=== PATIENT | male | born 1970 | race Two or more races ===

== ENCOUNTER → 2024-09-16 | Outpatient (CLI) | payer MEDICAID, SELFPAY ==
--- NOTE | 2024-09-16 13:30 | XR_ITS ---
Examination: Cervical myelogram IR fluoroscopically guided lumbar puncture Fluoroscopy AP lumbar thoracic cervical spine 7 views Exam date and time: September 16, 2024 at 1400 hours INDICATIONS: Neck pain months, diagnosis cervical spinal stenosis, advanced bilateral neural foraminal stenosis MRI cervical spine July 20, 2024 TECHNIQUE AND FINDINGS: Informed consent provided. Skin prepped over the lower back and sterile drape applied hand hygiene Successful lumbar puncture L5-S1 with introduction 10 cc Isovue-M 300 Contrast position in the cervical spine with AP images obtained lumbar thoracic and cervical spine No lateral indentations upon the cervical spine Please see the CT cervical spine study to follow IMPRESSION: Successful cervical myelogram Please see the CT cervical myelogram study to follow
[2024-09-16 13:47] VITALS: BP 164/108; PULSE 92; RESP 17; O2SAT 96; BMI 15.9
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
== END | disposition home or self-care (01) ==
PROVIDERS: PCP Student in an Organized Health Care Education/Training Program; Referring Provider Neurological Surgery; Visit Provider Neurological Surgery
DX: M48.02 Spinal stenosis, cervical region (principal); M50.123 Cervical disc disorder at C6-C7 level with radiculopathy; M50.322 Other cervical disc degeneration at C5-C6 level; M25.78 Osteophyte, vertebrae
CPT/HCPCS: 62302; 72125; Q9967

== ENCOUNTER → 2024-10-26 | Outpatient (CLI) | payer MEDICAID, SELFPAY ==
--- NOTE | 2024-10-26 | XR_ITS ---
Examination: PA lateral chest 2 views TECHNIQUE: Upright PA lateral chest 2 views Exam date and time: October 26, 2024 1325 hours Comparison April 22, 2024 INDICATIONS: Shortness of breath 2 weeks, undergoing antibiotic therapy FINDINGS: Stable pleural parenchymal scarring right base Mild prominence left ventricle No interval pneumonia or pulmonary edema Moderate osteopenia IMPRESSION: No interval pneumonia or pulmonary edema
== END | disposition home or self-care (01) ==
LOC: CDIM 12:05
PROVIDERS: Referring Provider Student in an Organized Health Care Education/Training Program; Visit Provider Student in an Organized Health Care Education/Training Program
DX: R06.02 Shortness of breath (principal); R07.9 Chest pain, unspecified
CPT/HCPCS: 71046

== ENCOUNTER → 2025-02-28 | Outpatient (CLI) | payer MEDICAID, SELFPAY ==
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
== END | disposition home or self-care (01) ==
LOC: CDIM 07:41
PROVIDERS: PCP Student in an Organized Health Care Education/Training Program; Referring Provider Internal Medicine; Visit Provider Internal Medicine
DX: R91.8 Other nonspecific abnormal finding of lung field (principal); R05.3 Chronic cough
CPT/HCPCS: 71046

== ENCOUNTER 2025-04-22 13:24 | Emergency (ER) | payer MEDICAID, SELFPAY ==
[2025-04-22 13:31] VITALS: BP 125/85; PULSE 93; RESP 20; TEMP 36.8; O2SAT 96; BMI 30.7
--- NOTE | 2025-04-22 13:32 | PD.EDRME ---
Rapid Medical Screening Exam RME Arrival date/time: 04/22/25 13:24 54-year-old male with no known medical history presents to the emergency room with a chief complaint of difficulty swallowing and throat swelling x 2 days I have greeted and performed a focused initial assessment of this patient. A comprehensive ED assessment and evaluation of the patient, analysis of all test results, and completion of the medical decision making process will be conducted by additional ED providers. Chief Complaint: Dental/Oral/Throat Time Seen by Provider: 04/22/25 13:25 Vital signs reviewed by provider: Yes
--- NOTE | 2025-04-22 13:46 | PD.EDALLER ---
ED Allergic Reaction RME/HPI General Chief complaint: Dental/Oral/Throat Stated complaint: Allergy shot yesterday, throat pain Time Seen by Provider: 04/22/25 13:25 Arrival date/time: 04/22/25 13:24 RME / HPI RME / HPI narrative: 54-year-old male patient with significant history of multiple long list of allergy to almost everything according to the , came in for evaluation regarding feeling itchy throat, and throat feels like closing, sudden onset, after patient was doing yard work. Patient is currently receiving immuno therapy for allergy, usually twice a week, last dose was yesterday. Patient denies any shortness of breath. Denies any fever denies any chest pain denies any abdominal pain no medication was taken prior to arrival. Related Data Home Medications ?Medication ?Instructions ?Recorded ?Confirmed alprazolam 0.5 mg tablet mg 04/22/25 amlodipine 10 mg-benazepril 40 mg 1 cap PO QDAY 04/22/25 04/22/25 capsule (Lotrel) bupropion HCl 150 mg tablet,12 hr 150 mg PO BID 04/22/25 04/22/25 sustained-release (Wellbutrin SR) clonidine HCl 0.1 mg tablet mg 04/22/25 hydrocodone 7.5 mg-acetaminophen 1 tab PO QDAY 04/22/25 04/22/25 325 mg tablet montelukast 10 mg tablet 10 mg PO QDAY 04/22/25 04/22/25 Previous Rx's ?Medication ?Instructions ?Recorded albuterol sulfate 2.5 mg/3 mL 2.5 mg (3 mL) inhalation QID PRN 10/16/23 (0.083 %) solution for nebulization shortness of breath or wheezing #90 mL amlodipine 10 mg tablet 10 mg PO QDAY #30 tabs 04/22/25 amoxicillin 875 mg-potassium 1 tab PO BID #14 tabs 04/22/25 clavulanate 125 mg tablet epinephrine 0.3 mg/0.3 mL 0.3 ml subcut .once PRN 04/22/25 injection, auto-injector hypersensitivity reaction #2 ea Allergies Allergy/AdvReac Type Severity Reaction Status Date / Time No Known Allergies Allergy Verified 04/22/25 13:27 Review of Systems Review of Systems Narrative Review of Systems: Review of system reviewed and within normal limits except mentioned in HPI ED Exam Narrative Physical exam: VITAL SIGNS: Reviewed. GENERAL APPEARANCE: Alert and interactive, follows commands, no acute distress, HEAD AND FACE: Non-traumatic. ENT: PERRL, pink conjunctivitis, eyelid no trauma, Mucous membrane moist. Uvula enlarged, on the midline, peritonsillar area no swelling no redness, tonsils no swelling no exudates visible no rashes noted of the oral mucosa, no lymphadenopathy or masses palpated on the cervical area NECK: Supple, nontender, no nuchal rigidity. CHEST: No tenderness, no crepitus, no paradoxical movement, no retractions. LUNGS: Clear, well ventilated, symmetric, no rales, no wheezing, no ronchi, no stridor, good breath sounds bilaterally. HEART: Regular rate, regular rhythm, no murmur, no gallops. ABDOMEN: Soft, positive bowel sounds, nondistended, no guarding, nontender, no rebound, no masses, RECTAL: Deferred. GENITAL: Deferred. NEUROLOGICAL: Gross motor function intact sensory function intact, Appropriate for age. MUSCULOSKELETAL: low back nontender, full range of motion. EXTREMITIES: Nontender, full range of motion. SKIN: Color pink, dry, + erythematous rashes noted on the back of the knees bilateral, no lacerations, no abrasions, no contusions. LYMPHATICS: Deferred. Course Quality Measures none Orders Category Date Time Status CT Screening NOW Care 04/22/25 15:[address] soft tissue neck w con Stat Exams 04/22/25 15:55 Completed CBC [CBC] Stat Lab 04/22/25 15:30 Completed CMP [Comprehensive Metabolic Panel] Stat Lab 04/22/25 15:30 Completed Strep A Rapid Stat Lab 04/22/25 13:35 Completed Amoxicillin/Pot Clav 875 [Augmentin 875] Med 04/22/25 18:37 Discontinued 1 tab PO X1 ONE Dexamethasone Inj [Decadron Inj] Med 04/22/25 14:00 Discontinued 10 mg IV X1 ONE DiphenhydrAMINE INJ [Benadryl Inj] Med 04/22/25 13:43 Discontinued 50 mg IVP X1 ONE DiphenhydrAMINE [Benadryl] Med 04/22/25 13:32 Discontinued 25 mg PO X1 ONE EPINEPHrine Inj [Adrenalin Inj] Med 04/22/25 14:31 Discontinued 0.5 mg IM X1 ONE EPINEPHrine Rt Micheline [Racemic Epi Rt Micheline] Med 04/22/25 16:39 Discontinued 0.5 ml INH X1 ONE Famotidine Inj [Pepcid Inj] Med 04/22/25 13:43 Discontinued 20 mg IVP X1 ONE Famotidine [Pepcid] Med 04/22/25 13:32 Discontinued 20 mg PO X1 ONE Sodium Chloride 0.9% 1000 ml [Ns] 1,000 ml Med 04/22/25 13:43 Discontinued IV 999 mls/hr Sodium Chloride Rt Micheline 0.9% [NS Rt Micheline 0.9%] Med 04/22/25 16:39 Active 3 ml INH PRN PRN dexAMETHasone TAB [Decadron Tab] Med 04/22/25 13:32 Discontinued 10 mg PO X1 ONE Vital Signs Vital signs: Vital Signs Temperature 98.3 F 04/22/25 13:31 Pulse Rate 93 04/22/25 13:31 Respiratory Rate 20 04/22/25 13:31 Blood Pressure 125/85 H 04/22/25 13:31 Pulse Oximetry (%) 96 04/22/25 13:31 Oxygen Delivery Method Room Air 04/22/25 13:31 Allergic Reaction MDM Narrative MDM Narrative:: 54-year-old male patient with significant history of multiple long list of allergy to almost everything according to the , came in for evaluation regarding feeling itchy throat, and throat feels like closing, sudden onset, after patient was doing yard work. Patient is currently receiving immuno therapy for allergy, usually twice a week, last dose was yesterday. Patient denies any shortness of breath. Denies any fever denies any chest pain denies any abdominal pain no medication was taken prior to arrival. Patient is a negative for strep, patient's laboratory workup is significant for slight leukocytosis 12.7 CMP unremarkable except for slightly elevated creatinine 1.8 BUN is normal. Patient was advised to drink a lot of fluids. And follow-up closely with PCP to repeat renal panel. Patient agrees with the plan. CT scan of the neck soft tissue showed Advanced degenerative disc disease C5-C6, C6-C7 Mild soft tissue tonsillar hypertrophy, no tonsillar abscess The larynx appears normal. Epiglottis is not thickened Minimal prevertebral soft tissue prominence C5, C6 levels Consider standard elective esophagram follow-up Suspicious for pneumonia right upper lobe, recommend PA lateral chest follow-up Patient was given IV fluids, Decadron, Benadryl Epi 0.5 mg IM and racemic epinephrine nebulization, with significant provide of symptoms patient is witnessed by me able to swallow water without any difficulty. Patient told me that his symptoms is totally gone. Patient was sent home on antibiotics due to pneumonia on CT scan. He told me that he had mild cough but no fever or chest pain. Patient was advised to stop taking benazepril. I gave this patient a prescription for Norvasc. Told him to follow-up closely with the PCP in the morning. Stable discharge home Patient data External records reviewed:: None Clinical information provided by:: patient and family Social determinants that could affect healthcare access:: none Patient has the following chronic illnesses:: Hypertension history of multiple allergies in the past How is presenting disease/condition affected by chronic disease/condition?: exacerbated by Evaluation data The following diagnostics were reviewed and interpreted by me:: lab results and radiology exam(s) Lab and/or radiology exams considered but not ordered:: None Interpretation Summary: See results MDM Medications / Prescriptions Medications or Prescriptions considered but not ordered:: None Medication administrations:: Medication Administration History Sodium Chloride (Sodium Chloride Rt Micheline 0.9% 3 Ml Nebu) 3 ml INH PRN PRN PRN Reason: SOLN Stop: 05/22/25 16:38 Last Admin: 04/22/25 16:46 Dose: 3 ml Documented By: PELON Discontinued Medications Amoxicillin/Clavulanate Potassium (Amoxicillin/Pot Clav 875 Tablet) 1 tab PO X1 ONE Stop: 04/22/25 18:38 Dexamethasone (Dexamethasone 4 Mg Tablet) 10 mg PO X1 ONE Stop: 04/22/25 13:33 Last Admin: 04/22/25 13:46 Dose: Not Given Documented By: TM Non-Admin Reason: Discontinued Dexamethasone Sodium Phosphate (Dexamethasone Sod Phos Inj 10 Mg/Ml Vial) 10 mg IV X1 ONE Stop: 04/22/25 14:01 Last Admin: 04/22/25 14:00 Dose: 10 mg Documented By: TM Diphenhydramine HCl (Diphenhydramine Elix 25 Mg/10 Ml Udc) 25 mg PO X1 ONE Stop: 04/22/25 13:33 Last Admin: 04/22/25 13:46 Dose: Not Given Documented By: TM Non-Admin Reason: Discontinued Diphenhydramine HCl (Diphenhydramine Inj 50 Mg/Ml Vial) 50 mg IVP X1 ONE Stop: 04/22/25 13:44 Last Admin: 04/22/25 13:54 Dose: 50 mg Documented By: GLEN Epinephrine (Epinephrine Rt Micheline 0.5 Ml Nebu) 0.5 ml INH X1 ONE Stop: 04/22/25 16:40 Last Admin: 04/22/25 16:46 Dose: 0.5 ml Documented By: PELON Epinephrine HCl (Epinephrine Inj 1 Mg/Ml Amp) 0.5 mg IM X1 ONE Stop: 04/22/25 14:32 Last Admin: 04/22/25 14:42 Dose: 0.5 mg Documented By: TM Famotidine (Famotidine 20 Mg Tablet) 20 mg PO X1 ONE Stop: 04/22/25 13:33 Last Admin: 04/22/25 13:46 Dose: Not Given Documented By: TM Non-Admin Reason: Discontinued Famotidine (Famotidine Inj 10 Mg/Ml Vial 2 Ml) 20 mg IVP X1 ONE Stop: 04/22/25 13:44 Last Admin: 04/22/25 13:54 Dose: 20 mg Documented By: GLEN Sodium Chloride (Ns) 1,000 mls @ 999 mls/hr IV .Q1H1M ONE Stop: 04/22/25 14:43 Last Infusion: 04/22/25 14:54 Dose: Infused Documented By: Admin: 04/22/25 13:53 Dose: 999 mls/hr Documented By: GLEN See meds in MDM Consultations Consultation(s) initiated? (list below): No Diagnosis Differential Diagnosis allergic reaction: allergic reaction, angioedema and other (Uvulitis, pneumonia) Most likely diagnosis given after review of the tests above:: Uvulitis, pneumonia, angio edema Admission Indicated Admission indicated?: not indicated Admission Request Was there a request for admission?: No Disposition Plan Disposition Plan: Discharge Discharge Attestation Discharge Attestation: The patient and all family members were given an opportunity to ask questions and understood the discharge instructions. Discharge instructions specifically effects, indications for sooner follow up or return to the emergency department, and the expected course of current diagnosis. Patient condition: Stable Discharge Plan Plan Patient Disposition: HOME (Self Care) Discharge Disposition comment: stable Prescriptions/Referrals Prescriptions/Med Rec: New epinephrine 0.3 mg/0.3 mL auto-injector 0.3 ml subcut .once PRN (Reason: hypersensitivity reaction) Qty: 2 0RF amoxicillin-pot clavulanate 875-125 mg tablet 1 tab PO BID Qty: 14 0RF amlodipine 10 mg tablet 10 mg PO QDAY Qty: 30 0RF No Action albuterol sulfate 2.5 mg /3 mL (0.083 %) solution for nebulization 2.5 mg inhalation QID PRN (Reason: shortness of breath or wheezing) Qty: 90 0RF clonidine HCl 0.1 mg tablet Patient Comments: TAKE 1 TABLET BY MOUTH TWICE A DAY alprazolam 0.5 mg tablet Patient Comments: TAKE 1 TABLET BY MOUTH TWICE DAILY NEEDED FOR ANXIETY amlodipine-benazepril [Lotrel] 10-40 mg capsule 1 cap PO QDAY bupropion HCl [Wellbutrin SR] 150 mg tablet sustained-release 12 hr 150 mg PO BID montelukast 10 mg tablet 10 mg PO QDAY hydrocodone-acetaminophen 7.5-325 mg tablet 1 tab PO QDAY Referrals: Lexi Wright [employer] [Primary Care Provider] - In 1 week Problem List Clinical Impression: Uvulitis, Pneumonia, Angioedema Patient/Caregiver Discharge Instructions Discharge Activity: activity as tolerated Education Materials: ED Uvulitis Additional Instructions: Thank you for the opportunity for serving you today. You are stable for discharged . You are advised to: Follow-up with your PCP in the morning regarding your blood pressure medications, I discontinued your benazepril which could be the reason for your angioedema Return to ED for worsening of symptoms Increase oral fluids Take medication as prescribed Print Language: Vietnamese Stand Alone Forms: Merle Award Info., Patient Portal Info Letter JESÚS/MARITZA Supervising Physician SARA Supervising Physician: MD Percy
[2025-04-22] MEDS: SODIUM CHLORIDE 0.9% 1000 ML 1,000 ML 999 ML IV (13:53)
[2025-04-22] MEDS: FAMOTIDINE INJ 10 MG/ML VIAL 2 ML 20 MG IVP (13:54)
[2025-04-22] MEDS: DEXAMETHASONE SOD PHOS INJ 10 MG/ML VIAL IV (14:00)
[2025-04-22 14:10] LABS: Strep A Rapid Negative (Negative)
[2025-04-22 14:42] VITALS: BP 141/86; PULSE 78
[2025-04-22] MEDS: EPINEPHrine INJ 1 MG/ML AMP 0.5 MG IM (14:42)
[2025-04-22 14:56] VITALS: BP 138/89; PULSE 81; RESP 16; TEMP 36.9; O2SAT 95
--- NOTE | 2025-04-22 15:55 | XR_ITS ---
Examination: CT soft tissue neck, with intravenous contrast. 2-D coronal reconstructions. 2-D sagittal reconstructions. Date and time of exam :April 22, 2025 1715 hours INDICATION: Painful neck pain. Following today. CTDI: vol (mGy):16.6 DLP: (mGycm):471 Technique: 1.25 mm axial sections of the neck of the obtained. Coronal and sagittal reconstructions have been obtained. Intravenous contrast administered 30 cc Isovue 370. Low dose protocols were performed. One or more of the following dose reduction techniques were used; automated exposure control, adjustment of the mA and/or KV according to patient size, use of iterative reconstruction technique. Findings: Advanced degenerative disc disease C5-C6, C6-C7 with moderate cervical spondylosis Symmetrical nasopharynx oropharynx Mild soft tissue tonsillar hypertrophy, no tonsillar abscess The larynx appears normal The epiglottis is not thickened Minimal prevertebral soft tissue prominence at C5-C6 levels Symmetrical thyroid lobes Soft densities at the right apex consistent with pneumonia IMPRESSION: Advanced degenerative disc disease C5-C6, C6-C7 Mild soft tissue tonsillar hypertrophy, no tonsillar abscess The larynx appears normal. Epiglottis is not thickened Minimal prevertebral soft tissue prominence C5, C6 levels Consider standard elective esophagram follow-up Suspicious for pneumonia right upper lobe, recommend PA lateral chest follow-up
[2025-04-22 16:29] LABS: Basophils # (Auto) 0.1 Thou/mm3 (0.0-0.2); Basophils % (Auto) 1 % (0-2.5); Eosinophils # (Auto) 0.5 Thou/mm3 (0.0-0.5); Eosinophils % (Auto) 4 % (0-10); Hematocrit 45.8 % (41.0-53.0); Hemoglobin 16.1 g/dL (13.5-16.0); Immature Granulocytes Auto 0.04 Thou/mm3 (0.00-0.00); Lymphocytes # (Auto) 2.2 Thou/mm3 (1.0-4.8); Lymphocytes % (Auto) 17 % (10-50); Mean Corpuscular HGB Conc 35.2 g/dl (31.0-37.0); Mean Corpuscular Hemoglobin 31.0 pg (25.0-35.0); Mean Corpuscular Volume 88 fL (80-100); Monocytes # (Auto) 1.1 Thou/mm3 (0.0-0.8); Monocytes % (Auto) 9 % (0-12); Neutrophils # (Auto) 8.8 Thou/mm3 (1.8-7.7); Neutrophils % (Auto) 69 % (37-80); Nucleated Red Blood Cell # 0.00 Thou/mm3 (0.00-0.00); Nucleated Red Blood Cell % 0 /100 WBC (0); Platelet Count 269 Thou/mm3 (140-440); RDW Standard Deviation 38.5 fL (35.1-43.9); Red Blood Count 5.19 Miln/mm3 (4.50-5.90); White Blood Count 12.7 Thou/mm3 (3.8-10.6)
[2025-04-22 16:46] VITALS: PULSE 76; RESP 18; O2SAT 96
[2025-04-22] MEDS: SODIUM CHLORIDE RT SOL 0.9% 3 ML NEBU INH (16:46)
[2025-04-22] MEDS: EPINEPHrine RT SOL 0.5 ML NEBU INH (16:46)
[2025-04-22 16:51] LABS: Alanine Aminotransferase 35 U/L (10-49); Albumin, Serum 4.9 gm/dL (3.5-5.0); Albumin/Globulin Ratio 1.7 (1.2-2.2); Alkaline Phosphatase 82 U/L (46-116); Anion Gap 12 (7-16); Aspartate Amino Transferase 23 U/L (0-34); BUN/Creatinine Ratio 11 Ratio (12-20); Bilirubin,Total 0.5 mg/dL (0.3-1.2); Blood Urea Nitrogen 20 mg/dL (9-23); Calcium 9.8 mg/dL (8.3-10.6); Calcium (Corrected) 9.8 mg/dL (8.5-10.1); Carbon Dioxide 25.4 mMol/L (20.0-31.0); Chloride 106 mMol/L (98-107); Creatinine (Component) 1.8 mg/dL (0.6-1.3); Estimated Creatinine Clearance 60.6 mL/min (>60); Globulin 2.9 gm/dL (2.3-3.5); Glucose 69 mg/dL (74-106); Osmolality,Calculated 285 (275-295); Potassium 3.8 mMol/L (3.4-5.1); Sodium 143 mMol/L (136-145); Total Protein 7.8 gm/dL (5.7-8.2); eGFR 44 See Note
[2025-04-22 17:55] VITALS: BP 158/99; PULSE 73; RESP 18; TEMP 36.9; O2SAT 95
[2025-04-22] MEDS: AMOXICILLIN/POT CLAV 875 TABLET 1 TAB PO (18:54)
== END 2025-04-22 19:04 | disposition home or self-care (01) ==
PROVIDERS: Nurse Practitioner Family; Emergency Provider Emergency Medicine; PCP Nurse Practitioner Family
DX: T78.3XXA Angioneurotic edema, initial encounter (principal); K12.2 Cellulitis and abscess of mouth; J18.9 Pneumonia, unspecified organism; Z88.8 Allergy status to other drugs, medicaments and biological substances
CPT/HCPCS: 36415; 70491; 80053; 85025; 87651; 94640; 96361; 96374; 96375; 99284; A4649; J0166; J1100; J1200; J3490; J7030; Q9967; A9270

== ENCOUNTER 2025-05-02 16:00 | Emergency (ER) | payer MEDICAID, SELFPAY ==
[2025-05-02 16:11] VITALS: BP 199/101; PULSE 91; RESP 19; TEMP 36.9; O2SAT 98; BMI 30.4
--- NOTE | 2025-05-02 16:14 | EKG_ITS ---
[facility] Test Date: 2025-05-02 Pat Name: MELODY PINTO Department: Room: - Gender: Male [employer]itter: : 1970 Requested By: Bob Garcia Order Number: [id number] Reading MD: Bob Garcia Measurements Intervals [place] Rate: 88 P: 48 TN: 196 QRS: -24 QRSD: 128 T: 31 QT: 357 QTc: 433 Interpretive Statements SINUS RHYTHM POSSIBLE LEFT ATRIAL ENLARGEMENT [-0.1mV P-WAVE IN V1/V2] BORDERLINE LEFT AXIS DEVIATION [QRS AXIS < -20] RIGHT BUNDLE BRANCH BLOCK [120+ ms QRS DURATION, UPRIGHT V1, 40+ ms S IN I/aVL/V4/V5/V6] Compared to ECG 10/16/2023 10:29:01 Sinus tachycardia no longer present /store/S0/[id number]/ecg/[id number].pdf
--- NOTE | 2025-05-02 16:16 | PD.EDRME ---
Rapid Medical Screening Exam RME Arrival date/time: 05/02/25 16:00 55-year-old male with a history of hypertension presents to the emergency room with a chief complaint of multiple high blood pressure readings, headache, dizziness x 2 days I have greeted and performed a focused initial assessment of this patient. A comprehensive ED assessment and evaluation of the patient, analysis of all test results, and completion of the medical decision making process will be conducted by additional ED providers. Chief Complaint: Headache Vital signs: Vital Signs Temperature 98.4 F 05/02/25 16:11 Pulse Rate 91 05/02/25 16:11 Respiratory Rate 19 05/02/25 16:11 Blood Pressure 199/101 H 05/02/25 16:11 Pulse Oximetry (%) 98 05/02/25 16:11 Oxygen Delivery Method Room Air 05/02/25 16:11 Vital signs reviewed by provider: Yes
[2025-05-02 16:40] LABS: Basophils # (Auto) 0.1 Thou/mm3 (0.0-0.2); Basophils % (Auto) 1 % (0-2.5); Eosinophils # (Auto) 0.6 Thou/mm3 (0.0-0.5); Eosinophils % (Auto) 7 % (0-10); Hematocrit 47.7 % (41.0-53.0); Hemoglobin 16.4 g/dL (13.5-16.0); Immature Granulocytes Auto 0.04 Thou/mm3 (0.00-0.00); Lymphocytes # (Auto) 2.5 Thou/mm3 (1.0-4.8); Lymphocytes % (Auto) 28 % (10-50); Mean Corpuscular HGB Conc 34.4 g/dl (31.0-37.0); Mean Corpuscular Hemoglobin 30.8 pg (25.0-35.0); Mean Corpuscular Volume 90 fL (80-100); Monocytes # (Auto) 1.2 Thou/mm3 (0.0-0.8); Monocytes % (Auto) 13 % (0-12); Neutrophils # (Auto) 4.6 Thou/mm3 (1.8-7.7); Neutrophils % (Auto) 51 % (37-80); Nucleated Red Blood Cell # 0.00 Thou/mm3 (0.00-0.00); Nucleated Red Blood Cell % 0 /100 WBC (0); Platelet Count 247 Thou/mm3 (140-440); RDW Standard Deviation 38.4 fL (35.1-43.9); Red Blood Count 5.33 Miln/mm3 (4.50-5.90); White Blood Count 9.2 Thou/mm3 (3.8-10.6)
[2025-05-02 16:55] LABS: B-Type Natriuretic Peptide 22 pg/mL (0-100)
[2025-05-02 16:57] LABS: Alanine Aminotransferase 40 U/L (10-49); Albumin, Serum 4.7 gm/dL (3.5-5.0); Albumin/Globulin Ratio 1.7 (1.2-2.2); Alkaline Phosphatase 84 U/L (46-116); Anion Gap 8 (7-16); Aspartate Amino Transferase 27 U/L (0-34); BUN/Creatinine Ratio 8 Ratio (12-20); Bilirubin,Total 0.4 mg/dL (0.3-1.2); Blood Urea Nitrogen 11 mg/dL (9-23); Calcium 9.5 mg/dL (8.3-10.6); Calcium (Corrected) 9.5 mg/dL (8.5-10.1); Carbon Dioxide 27.6 mMol/L (20.0-31.0); Chloride 105 mMol/L (98-107); Creatinine (Component) 1.4 mg/dL (0.6-1.3); Estimated Creatinine Clearance 76.6 mL/min (>60); Globulin 2.8 gm/dL (2.3-3.5); Glucose 102 mg/dL (74-106); Osmolality,Calculated 280 (275-295); Potassium 4.1 mMol/L (3.4-5.1); Sodium 141 mMol/L (136-145); Total Protein 7.5 gm/dL (5.7-8.2); Troponin I < 0.020 ng/mL (0.0-0.045); eGFR 60 See Note
[2025-05-02 18:35] VITALS: BP 157/87; PULSE 77
--- NOTE | 2025-05-02 19:07 | PD.EDHA ---
ED Headache RME/HPI General Chief Complaint: Headache Stated Complaint: HIGH BLOOD PRESSURE, HEADACHE X 1 WEEK Time Seen by Provider: 05/02/25 18:11 Arrival date/time: 05/02/25 16:00 RME / HPI RME / HPI Narrative: 05/02/25 16:00 55-year-old male with a history of hypertension presents to the emergency room with a chief complaint of multiple high blood pressure readings, headache, dizziness x 2 days I have greeted and performed a focused initial assessment of this patient. A comprehensive ED assessment and evaluation of the patient, analysis of all test results, and completion of the medical decision making process will be conducted by additional ED providers. This section includes all my notes and documentations, including HPI, PE, and ED course. Lenard Hart MD HPI: 55yo male with history of HTN here for high blood pressure readings for several days. His current BP medications at home include losartan 50 mg every morning and amlodipine 10 mg every night and clonidine 0.1 mg twice daily. He reports headache. No chest pain. No other complaints. ROS: All negative except as documented in HPI. Physical Exam: General:? Alert and oriented.? No acute distress.??High BP noted. Eyes:? Conjunctivae and lids clear.? EOMI.? PERRL. ENT:? No nasal congestion.? Neck:? Supple.? No carotid bruit.? No JVD.?? Heart:? RRR.? Lungs:? No respiratory distress.? Good air movement.? No rhonchi, wheezing, rales.?? Legs:? No clubbing, cyanosis, edema.? Skin:? Warm and dry.?? Neuro:? Alert and oriented X 3.? Cranial Nerves II-XII grossly intact.? No peripheral motor deficits. I reviewed all diagnostic test results. My interpretation of the EKG is sinus rhythm with no acute ST?T changes. My review of the CT head report is NAD. Blood tests are unremarkable. At this point, diagnoses include hypertension. Treatment here included oral metoprolol 50 mg and oral clonidine 0.3 mg. Significant improvement noted. Recommended more outpatient care. Based on my best medical judgment, made decision no further evaluation or treatment indicated at this time. Patient understands and agrees to the discharge instructions customized and printed, see below. Discharge Instructions from Dr. Hart printed for you: 1. After evaluation, there is no life-threatening condition. Such as stroke or brain tumor. 2. We need to lower your BP and slow your heart. You will live longer. 3. Continue your current morning losartan 50 mg and the evening amlodipine 10 mg. 4. Start metoprolol 50 mg twice daily. 5. Take clonidine 0.1 mg pills as needed based on SBP (higher number of BP). Check your BP twice daily (about 12 hours apart). If SBP > 140, take one pill. If SBP > 160, take two pills. If SBP > 180, take three pills. If SBP > 200, take four pills. 6. See a private doctor on 05/04/2025 for recheck and further care. Ask to help you stay healthy, with good BP management, helping you to prevent future heart attacks and strokes, and with regular physical exam and health maintenance. 7. Seek immediate medical care with worsening or with any concerns. Lenard Hart MD Related Data Home Medications ?Medication ?Instructions ?Recorded ?Confirmed alprazolam 0.5 mg tablet mg 04/22/25 amlodipine 10 mg-benazepril 40 mg 1 cap PO QDAY 04/22/25 04/22/25 capsule (Lotrel) bupropion HCl 150 mg tablet,12 hr 150 mg PO BID 04/22/25 04/22/25 sustained-release (Wellbutrin SR) clonidine HCl 0.1 mg tablet mg 04/22/25 hydrocodone 7.5 mg-acetaminophen 1 tab PO QDAY 04/22/25 04/22/25 325 mg tablet montelukast 10 mg tablet 10 mg PO QDAY 04/22/25 04/22/25 Previous Rx's ?Medication ?Instructions ?Recorded albuterol sulfate 2.5 mg/3 mL 2.5 mg (3 mL) inhalation QID PRN 10/16/23 (0.083 %) solution for nebulization shortness of breath or wheezing #90 mL amlodipine 10 mg tablet 10 mg PO QDAY #30 tabs 04/22/25 amoxicillin 875 mg-potassium 1 tab PO BID #14 tabs 04/22/25 clavulanate 125 mg tablet epinephrine 0.3 mg/0.3 mL 0.3 ml subcut .once PRN 04/22/25 injection, auto-injector hypersensitivity reaction #2 ea clonidine HCl 0.1 mg tablet 0.1 mg PO BID #60 tabs 05/02/25 metoprolol succinate 50 mg 50 mg PO BID #60 tabs 05/02/25 tablet,extended release 24 hr Allergies Allergy/AdvReac Type Severity Reaction Status Date / Time benazepril Allergy Severe Swelling Verified 05/02/25 16:05 of Lip/Tongue/Throat Review of Systems Review of Systems Systems Reviewed: All systems reviewed, normal except as documented ED Exam Narrative Physical exam: As noted in HPI. Course Quality Measures none Orders Category Date Time Status EKG (ED ONLY) *Do not use* NOW Care 05/02/25 16:[address] head/brain wo con Stat Exams 05/02/25 21:12 Completed EKG (ED Only) Stat Exams 05/02/25 16:14 Draft B-Type Natriuretic Peptide Stat Lab 05/02/25 16:24 Completed CBC Stat Lab 05/02/25 16:24 Completed Comprehensive Metabolic Panel Stat Lab 05/02/25 16:24 Completed Free T4 (Free Thyroxine) Stat Lab 05/02/25 16:29 Completed Magnesium Stat Lab 05/02/25 16:29 Completed TSH [Thyroid Stimulating Hormone] Stat Lab 05/02/25 16:29 Completed Troponin I Stat Lab 05/02/25 16:24 Completed Metoprolol Tartrate [Lopressor] Med 05/02/25 19:09 Discontinued 50 mg PO X1 ONE cloNIDine HCL [Catapres] Med 05/02/25 16:16 Discontinued 0.1 mg PO X1 ONE cloNIDine HCL [Catapres] Med 05/02/25 19:09 Discontinued 0.2 mg PO X1 ONE Vital Signs Vital signs: Vital Signs Temperature 98.4 F 05/02/25 16:11 Pulse Rate 91 05/02/25 16:11 Respiratory Rate 19 05/02/25 16:11 Blood Pressure 199/101 H 05/02/25 16:11 Pulse Oximetry (%) 98 05/02/25 16:11 Oxygen Delivery Method Room Air 05/02/25 16:11 Headache MDM Narrative MDM Narrative:: 55yo male with a history of HTN here for high blood pressure readings. Patient recently followed-up with his PCP and has been taking Losartan 50mg for the last few days. Patient's blood pressure has continued to be high. He has a headache and palpitations. No chest pain. No other complaints reported. Patient data External records reviewed:: [facility] previous records (Per chart review, patient was seen here on 04/22/25 for angioedema.) Clinical information provided by:: patient Social determinants that could affect healthcare access:: none Patient has the following chronic illnesses:: HTN How is presenting disease/condition affected by chronic disease/condition?: caused by Evaluation data The following diagnostics were reviewed and interpreted by me:: lab results, radiology exam(s) and EKG tracing(s) Lab and/or radiology exams considered but not ordered:: none Interpretation Summary: I reviewed all diagnostic test results. My interpretation of the EKG is sinus rhythm with no acute ST?T changes. My review of the CT head report is NAD. Blood tests are unremarkable. Medications / Prescriptions Medications or Prescriptions considered but not ordered:: none Medication administrations:: Medication Administration History Discontinued Medications Clonidine (Clonidine Hcl 0.1 Mg Tablet) 0.1 mg PO X1 ONE Stop: 05/02/25 16:17 Last Admin: 05/02/25 18:35 Dose: 0.1 mg Documented By: FANI Clonidine (Clonidine Hcl 0.1 Mg Tablet) 0.2 mg PO X1 ONE Stop: 05/02/25 19:10 Last Admin: 05/02/25 19:55 Dose: 0.2 mg Documented By: Metoprolol Tartrate (Metoprolol Tartrate 25 Mg Tablet) 50 mg PO X1 ONE Stop: 05/02/25 19:10 Last Admin: 05/02/25 19:53 Dose: 50 mg Documented By: Metoprolol, Clonidine Consultations Consultation(s) initiated? (list below): No Diagnosis Differential diagnosis headache: migraine, tension headache, headache and other (elevated blood pressure) Most likely diagnosis given after review of the tests above:: Hypertension Admission Indicated Admission indicated?: not indicated Explain why admission is indicated or not indicated:: With significant improvement and no condition needing emergent intervention, there was no indication for admission. Admission Request Was there a request for admission?: No Disposition Plan Disposition Plan: Discharge Discharge Attestation Discharge Attestation: The patient and all family members were given an opportunity to ask questions and understood the discharge instructions. Discharge instructions specifically effects, indications for sooner follow up or return to the emergency department, and the expected course of current diagnosis. Patient condition: Stable Discharge Plan Plan Patient Disposition: HOME (Self Care) Prescriptions/Referrals Prescriptions/Med Rec: New clonidine HCl 0.1 mg tablet 0.1 mg PO BID Qty: 60 0RF metoprolol succinate 50 mg tablet extended release 24 hr 50 mg PO BID Qty: 60 0RF No Action albuterol sulfate 2.5 mg /3 mL (0.083 %) solution for nebulization 2.5 mg inhalation QID PRN (Reason: shortness of breath or wheezing) Qty: 90 0RF clonidine HCl 0.1 mg tablet Patient Comments: TAKE 1 TABLET BY MOUTH TWICE A DAY alprazolam 0.5 mg tablet Patient Comments: TAKE 1 TABLET BY MOUTH TWICE DAILY NEEDED FOR ANXIETY amlodipine-benazepril [Lotrel] 10-40 mg capsule 1 cap PO QDAY bupropion HCl [Wellbutrin SR] 150 mg tablet sustained-release 12 hr 150 mg PO BID montelukast 10 mg tablet 10 mg PO QDAY hydrocodone-acetaminophen 7.5-325 mg tablet 1 tab PO QDAY epinephrine 0.3 mg/0.3 mL auto-injector 0.3 ml subcut .once PRN (Reason: hypersensitivity reaction) Qty: 2 0RF amoxicillin-pot clavulanate 875-125 mg tablet 1 tab PO BID Qty: 14 0RF amlodipine 10 mg tablet 10 mg PO QDAY Qty: 30 0RF Referrals: No Primary/Family,Physician [Primary Care Provider] - In 1 week Problem List Clinical Impression: Hypertension Patient/Caregiver Discharge Instructions Discharge Activity: activity as tolerated Education Materials: ED Hypertension, Established Additional Instructions: Discharge Instructions from Dr. Hart printed for you: 1. After evaluation, there is no life-threatening condition. Such as stroke or brain tumor. 2. We need to lower your BP and slow your heart. You will live longer. 3. Continue your current morning losartan 50 mg and the evening amlodipine 10 mg. 4. Start metoprolol 50 mg twice daily. 5. Take clonidine 0.1 mg pills as needed based on SBP (higher number of BP). Check your BP twice daily (about 12 hours apart). If SBP > 140, take one pill. If SBP > 160, take two pills. If SBP > 180, take three pills. If SBP > 200, take four pills. 6. See a private doctor on 05/04/2025 for recheck and further care. Ask to help you stay healthy, with good BP management, helping you to prevent future heart attacks and strokes, and with regular physical exam and health maintenance. 7. Seek immediate medical care with worsening or with any concerns. Print Language: Amharic Stand Alone Forms: [facility] Info., Patient Portal Info Letter
[2025-05-02 19:42] LABS: Free T4 (Free Thyroxine) 1.17 ng/dL (0.89-1.76); Magnesium 2.0 mg/dL (1.6-2.6); Thyroid Stimulating Hormone 1.27 uIU/mL (0.55-4.78)
[2025-05-02 19:53] VITALS: BP 157/87; BP 157/96; PULSE 73; PULSE 77; RESP 18; TEMP 37; O2SAT 96
[2025-05-02] MEDS: METOPROLOL TARTRATE 25 MG TABLET 50 MG PO (19:53)
[2025-05-02 19:55] VITALS: BP 157/96; PULSE 73
--- NOTE | 2025-05-02 21:12 | XR_ITS ---
Examination: CT brain head without contrast. 2-D sagittal coronal reconstructions Date and time of exam:December 31, 2024, 2133 hours INDICATIONS: High blood pressure with headache 1 week. CTDI: vol (mGy):53.9 DLP: (mGycm):1082 Technique: Multiple CT axial sections of the brain have been obtained, 5 mm slice thickness. Contrast has not been administered. 2-D sagittal, coronal reconstructions have been obtained Low dose protocols were performed. One or more of the following dose reduction techniques were used; automated exposure control, adjustment of the mA and/or KV according to patient size, use of iterative reconstruction technique. Findings: No significant ventricular enlargement. Intra-axial or extra-axial hemorrhage density is not seen. No mass effect or midline shift Basal cisterns are not remarkable. Fourth ventricle is midline. Cranial vault intact. Impression: Negative for acute hemorrhage, mass effect or midline shift
[2025-05-02 22:06] VITALS: BP 131/70; PULSE 64; RESP 18; TEMP 36.5; O2SAT 96
== END 2025-05-02 22:24 | disposition home or self-care (01) ==
PROVIDERS: Nurse Practitioner Family; Emergency Provider Emergency Medicine
DX: I10 Essential (primary) hypertension (principal); R51.9 Headache, unspecified; I45.10 Unspecified right bundle-branch block
CPT/HCPCS: 36415; 70450; 80053; 80307; 81001; 83735; 83880; 84439; 84443; 84484; 85025; 93005; 99283; A9270

== ENCOUNTER → 2025-05-17 | Outpatient (CLI) | payer MEDICAID, SELFPAY ==
--- NOTE | 2025-05-17 | XR_ITS ---
Examination: PA lateral chest 2 views TECHNIQUE: Upright PA lateral chest 2 views Date and time: May 17, 2025 0808 hours COMPARISON: February 28, 2025 INDICATIONS: Pneumonia in the right apex on CT soft tissue neck April 22, 2025. FINDINGS: Normal heart size Pleural parenchymal scarring right base. Subtle parenchymal disease at the right apex No pulmonary edema IMPRESSION: Recommend AP lordotic chest follow-up to confirm parenchymal disease at the right apex
== END | disposition home or self-care (01) ==
DX: R05.9 Cough, unspecified (principal)
CPT/HCPCS: 71046

== ENCOUNTER → 2025-06-23 | Outpatient (CLI) | payer MEDICAID, SELFPAY ==
--- NOTE | 2025-06-23 15:34 | XR_ITS ---
Indication: Cervical spine 4 views TECHNIQUE: AP, lateral, swimmer's lateral, coned AP odontoid cervical spine 4 views Date and time: June 23, 2025 1558 hours INDICATIONS: Neck pain beginning 9 months ago. FINDINGS: Straightening normal cervical lordosis. No cervical fracture. Intact odontoid. Advanced degenerative disc disease C5-C6, C6-C7 IMPRESSION: Advanced degenerative disc disease C5-C6, C6-C7
--- NOTE | 2025-06-23 15:34 | XR_ITS ---
Examination: PA lateral chest 2 views TECHNIQUE: Upright PA lateral chest 2 views Date and time: June 23, 2025, 1556 hours, comparison May 17, 2025 INDICATIONS: Preop, history pneumonia and pleural scarring right base on earlier chest imaging FINDINGS: Stable pleural scarring right base Stable scarring in the right upper lobe No interval pneumonia or pulmonary edema The osseous structures are intact IMPRESSION: No interval pneumonia or pulmonary edema
== END | disposition home or self-care (01) ==
LOC: CDIM 15:14
PROVIDERS: PCP Internal Medicine; Referring Provider Internal Medicine; Visit Provider Internal Medicine
DX: R91.8 Other nonspecific abnormal finding of lung field (principal); M50.322 Other cervical disc degeneration at C5-C6 level; Z01.818 Encounter for other preprocedural examination
CPT/HCPCS: 71046; 72040